=== PATIENT | female | born 1970 | race African-American/Black ===

== ENCOUNTER 2016-10-26 17:20 | Emergency (ER) | payer MEDICARE, MEDICAID ==
[2016-10-26] MEDS ORDERED: Ketorolac Tromethamine 60 MG/2 ML VIAL ONE (17:53)
== END 2016-10-26 18:06 | disposition home or self-care (01) ==
LOC: NAV ERS 17:20
DX: M77.11 Lateral epicondylitis, right elbow (principal); M77.12 Lateral epicondylitis, left elbow; B20 Human immunodeficiency virus [HIV] disease; I10 Essential (primary) hypertension; J45.909 Unspecified asthma, uncomplicated
CPT/HCPCS: 96372; J1885

== ENCOUNTER 2016-12-18 10:24 | Emergency (ER) | payer MEDICARE, OTHER ==
[2016-12-18] MEDS ORDERED: Tetracaine HCl 0.5% Ophth Soln 2 ML Bottle ONE (10:46)
[2016-12-18] MEDS ORDERED: Gentamicin Ophth Ointment 0.3% 3.5 gm Tube ONE (11:13)
== END 2016-12-18 11:27 | disposition home or self-care (01) ==
LOC: NAV ERS 10:24
DX: H00.012 Hordeolum externum right lower eyelid (principal); I10 Essential (primary) hypertension; J45.909 Unspecified asthma, uncomplicated; Z21 Asymptomatic human immunodeficiency virus [HIV] infection status; Z86.73 Personal history of transient ischemic attack (TIA), and cerebral infarction without residual deficits; Z79.899 Other long term (current) drug therapy
CPT/HCPCS: 99283

== ENCOUNTER 2017-02-16 23:09 | Emergency (ER) | payer MEDICARE, OTHER ==
[2017-02-16] MEDS ORDERED: Adacel (T-DAP) 0.5 ML VIAL ONE (23:36)
[2017-02-16] MEDS ORDERED: traMADol HCl 50 MG TAB ONE (23:36)
--- NOTE | 2017-02-16 23:56 | RAD ---
RIGHT TOE RADIOGRAPHS THREE VIEWS 02/16/2017 PROVIDED CLINICAL HISTORY: Right toe pain status post injury. FINDINGS: No evidence for fracture or other acute osseous abnormality. If there is persistent clinical concern, conservative management and follow-up imaging are advised. IMPRESSION: As above. POS: [facility]
== END 2017-02-17 00:05 | disposition home or self-care (01) ==
LOC: NAV ERS 23:09
DX: S90.121A Contusion of right lesser toe(s) without damage to nail, initial encounter (principal); B20 Human immunodeficiency virus [HIV] disease; J45.909 Unspecified asthma, uncomplicated; E66.9 Obesity, unspecified; I10 Essential (primary) hypertension; W22.8XXA Striking against or struck by other objects, initial encounter
CPT/HCPCS: 90471; 90715

== ENCOUNTER 2017-04-08 20:04 | Emergency (ER) | payer MEDICARE, OTHER ==
[2017-04-08] MEDS ORDERED: Lidocaine 1% 20 ML MDV ONE (20:41)
--- NOTE | 2017-04-08 21:03 | RAD ---
RIGHT FOOT THREE VIEWS: History: Kicked son's boot. Comparison: 02-16-17 FINDINGS: There is a fracture of the proximal phalanx fourth toe with lateral angulation and mild comminution. There does appear to be a fracture line seen to the metacarpal phalangeal joint. IMPRESSION: Mildly comminuted fracture of the proximal phalanx fourth digit with an intraarticular extension to the metacarpal phalangeal joint. POS: [facility]
--- NOTE | 2017-04-08 21:17 | RAD ---
RIGHT FOOT TWO VIEWS: History: Post reduction. Comparison: Foot radiographs same day. FINDINGS: Satisfactory alignment and post reduction of the proximal phalanx fracture fourth digit. IMPRESSION: Satisfactory alignment post reduction. POS: [facility]
== END 2017-04-08 21:23 | disposition home or self-care (01) ==
LOC: NAV ERS 20:04
DX: S92.511A Displaced fracture of proximal phalanx of right lesser toe(s), initial encounter for closed fracture (principal); I10 Essential (primary) hypertension; J45.909 Unspecified asthma, uncomplicated; Z21 Asymptomatic human immunodeficiency virus [HIV] infection status; Z86.73 Personal history of transient ischemic attack (TIA), and cerebral infarction without residual deficits; W22.8XXA Striking against or struck by other objects, initial encounter
CPT/HCPCS: 28515; J2001

== ENCOUNTER 2017-06-20 12:11 | Emergency (ER) | payer MEDICARE, OTHER ==
[2017-06-20] MEDS ORDERED: Dexamethasone 4 mg/ml Vial ONE (13:16)
== END 2017-06-20 13:41 | disposition home or self-care (01) ==
LOC: NAV ERS 12:11
DX: L23.6 Allergic contact dermatitis due to food in contact with the skin (principal); B20 Human immunodeficiency virus [HIV] disease; I10 Essential (primary) hypertension; J45.909 Unspecified asthma, uncomplicated
CPT/HCPCS: 96372; J1100

== ENCOUNTER 2017-10-31 17:32 | Emergency (ER) | payer MEDICARE, OTHER ==
[2017-10-31] MEDS ORDERED: diphenhydrAMINE 50 MG/ML VIAL ONE (17:52)
[2017-10-31] MEDS ORDERED: predniSONE 20 MG TAB ONE (17:53)
== END 2017-10-31 18:47 | disposition home or self-care (01) ==
LOC: NAV ERS 17:32
DX: T78.40XA Allergy, unspecified, initial encounter (principal); I10 Essential (primary) hypertension; Z86.73 Personal history of transient ischemic attack (TIA), and cerebral infarction without residual deficits; B20 Human immunodeficiency virus [HIV] disease; J45.909 Unspecified asthma, uncomplicated; Z79.899 Other long term (current) drug therapy
CPT/HCPCS: 96372; J1200; J7506

== ENCOUNTER 2018-01-15 17:23 | Emergency (ER) | payer MEDICARE, OTHER ==
[2018-01-15] MEDS ORDERED: Mag-Al Plus 1200 MG/1200 MG/120 MG/30 ML UDCUP ONE (17:50)
[2018-01-15] MEDS ORDERED: Lidocaine Viscous Sol 2% 15 ml UD Cup ONE (17:50)
[2018-01-15 18:24] LABS: #Eosinphils 0.1 thou/uL (0.0-0.7); #Lymphocytes 2.2 thou/uL (1.20-3.40); #Monocytes 0.3 thou/uL (0.11-0.59); #Neutrophils 2.4 thou/uL (1.40-6.50); %Basophils 0.7 % (0.0-1.0); %Eosinophils 2.8 % (0.0-10.0); %Lymphocytes 44.7 % (21.0-51.0); %Neutrophils 46.9 % (42.0-75.0); Hemoglobin 12.2 g/dL (12.0-16.0); Mean Corpuscular HGB CONC 31.8 g/dL (32.0-36.0); Mean Corpuscular Hemoglobin 31.6 pg (27.0-31.0); Mean Corpuscular Volume 99.2 fl (81.0-99.0); Mean Platelet Volume 5.8 fL (7.4-10.4); Platelet Count 325 thou/uL (130-400); RBC Distribution Width 11.2 % (11.5-14.5); Red Blood Cell (RBC) Count 3.87 mill/uL (4.20-5.40)
--- NOTE | 2018-01-15 18:43 | RAD ---
CHEST ONE VIEW: 01/15/18 COMPARISON: 05/08/16. HISTORY: Pain. FINDINGS: Diminished lung volumes, likely due to poor inspiratory effort. No consolidation. No pleural effusion or pneumothorax. Normal cardiac silhouette. IMPRESSION: No acute cardiopulmonary process. POS: [facility]
[2018-01-15 18:48] LABS: ALT (SGPT) 19 U/L (8-55); AST (SGOT) 22 U/L (5-34); Albumin 3.5 g/dL (3.5-5.0); Alkaline Phosphatase 124 U/L (40-150); Anion Gap 12 mmol/L (10-20); BUN (Urea Nitrogen) 22 mg/dL (7.0-18.7); Bilirubin, Total 0.5 mg/dL (0.2-1.2); CK (CPK) 166 U/L (29-168); CKMB 1.3 ng/mL (0-6.6); Calc. Creatinine Clearance 0 mL/min (70-130); Calcium 8.9 mg/dL (7.8-10.44); Carbon Dioxide 25 mmol/L (22-29); Chloride 106 mmol/L (98-107); Estimated GFR-MDRD 47; Globulin 3.5 g/dL (2.4-3.5); Glucose 95 mg/dL (70-105); Lipase 40 U/L (8-78); Potassium 3.9 mmol/L (3.5-5.1); Sodium 139 mmol/L (136-145); Troponin I Less than 0.010 ng/mL (< 0.028)
== END 2018-01-15 19:20 | disposition home or self-care (01) ==
LOC: NAV ERS 17:23
DX: R07.2 Precordial pain (principal); E86.0 Dehydration; B20 Human immunodeficiency virus [HIV] disease; Z86.73 Personal history of transient ischemic attack (TIA), and cerebral infarction without residual deficits; J45.909 Unspecified asthma, uncomplicated; Z79.899 Other long term (current) drug therapy; Z79.82 Long term (current) use of aspirin
CPT/HCPCS: 71045; 80053; 82550; 82553; 83690; 83880; 84484; 85025; 93005

== ENCOUNTER 2018-04-20 19:56 | Emergency (ER) | payer MEDICARE, OTHER ==
[2018-04-20] MEDS ORDERED: predniSONE 20 MG TAB ONE (20:29)
[2018-04-20] MEDS ORDERED: predniSONE 10 MG TAB ONE (20:29)
[2018-04-20] MEDS ORDERED: Benzonatate 100 MG CAP ONE (20:34)
== END 2018-04-20 21:12 | disposition home or self-care (01) ==
LOC: NAV ERS 19:56
DX: J45.901 Unspecified asthma with (acute) exacerbation (principal); J06.9 Acute upper respiratory infection, unspecified; B20 Human immunodeficiency virus [HIV] disease; I10 Essential (primary) hypertension; Z86.73 Personal history of transient ischemic attack (TIA), and cerebral infarction without residual deficits; Z79.899 Other long term (current) drug therapy; Z79.82 Long term (current) use of aspirin
CPT/HCPCS: J7506; J7512; J7620

== ENCOUNTER 2018-06-16 13:47 | Emergency (ER) | payer MEDICARE, OTHER ==
[2018-06-16] MEDS ORDERED: Mag-Al Plus 1200 MG/1200 MG/120 MG/30 ML UDCUP ONE (14:45)
[2018-06-16] MEDS ORDERED: Lidocaine Viscous Sol 2% 15 ml UD Cup ONE (14:45)
== END 2018-06-16 15:10 | disposition home or self-care (01) ==
LOC: NAV ERS 13:47
DX: K29.00 Acute gastritis without bleeding (principal); B20 Human immunodeficiency virus [HIV] disease; J45.909 Unspecified asthma, uncomplicated; I10 Essential (primary) hypertension; Z86.73 Personal history of transient ischemic attack (TIA), and cerebral infarction without residual deficits; Z79.899 Other long term (current) drug therapy; Z79.82 Long term (current) use of aspirin; Z86.711 Personal history of pulmonary embolism
CPT/HCPCS: 99283

== ENCOUNTER 2018-07-26 09:26 | Emergency (ER) | payer MEDICARE, MEDICAID | END 2018-07-26 10:11 | disposition home or self-care (01) | LOC: NAV ERS 09:26 | DX: N93.9 Abnormal uterine and vaginal bleeding, unspecified (principal); B20 Human immunodeficiency virus [HIV] disease; I10 Essential (primary) hypertension; J45.909 Unspecified asthma, uncomplicated; Z86.73 Personal history of transient ischemic attack (TIA), and cerebral infarction without residual deficits; Z79.82 Long term (current) use of aspirin; Z79.899 Other long term (current) drug therapy | CPT/HCPCS: 99281 ==

== ENCOUNTER 2018-09-16 17:42 | Emergency (ER) | payer MEDICARE, OTHER | END 2018-09-16 18:50 | disposition home or self-care (01) | LOC: NAV ERS 17:42 | DX: M79.674 Pain in right toe(s) (principal); B20 Human immunodeficiency virus [HIV] disease; J45.909 Unspecified asthma, uncomplicated; Z86.73 Personal history of transient ischemic attack (TIA), and cerebral infarction without residual deficits; Z79.899 Other long term (current) drug therapy; Z79.82 Long term (current) use of aspirin | CPT/HCPCS: 99281 ==

== ENCOUNTER 2018-12-21 23:50 | Emergency (ER) | payer MEDICARE, OTHER ==
[2018-12-22] MEDS ORDERED: Ondansetron ODT 4 MG TAB ONE (00:06)
[2018-12-22] MEDS ORDERED: Mag-Al Plus 1200 MG/1200 MG/120 MG/30 ML UDCUP ONE (00:21)
[2018-12-22] MEDS ORDERED: Lidocaine Viscous Sol 2% 15 ml UD Cup ONE (00:21)
[2018-12-22 00:49] LABS: #Basophils 0.1 thou/uL (0.0-0.2); #Eosinphils 0.3 thou/uL (0.0-0.7); #Lymphocytes 1.7 thou/uL (1.20-3.40); #Monocytes 0.2 thou/uL (0.11-0.59); %Basophils 1.2 % (0.0-1.0); %Eosinophils 6.2 % (0.0-10.0); %Lymphocytes 40.7 % (21.0-51.0); %Monocytes 5.1 % (0.0-10.0); %Neutrophils 46.8 % (42.0-75.0); Hemoglobin 12.1 g/dL (12.0-16.0); Mean Corpuscular HGB CONC 31.5 g/dL (32.0-36.0); Mean Corpuscular Hemoglobin 31.9 pg (27.0-31.0); Mean Platelet Volume 5.3 fL (7.4-10.4); Platelet Count 304 thou/uL (130-400); Platelet Morphology Comment Appears Adequate; RBC Distribution Width 11.4 % (11.5-14.5); RBC Morphology Normal; White Blood Cell (WBC) Count 4.3 thou/uL (4.8-10.8)
[2018-12-22 00:50] LABS: MDiff Complete? YES; Manual Diff?? NO
[2018-12-22 00:54] LABS: ALT (SGPT) 16 U/L (8-55); AST (SGOT) 20 U/L (5-34); Albumin 3.4 g/dL (3.5-5.0); Alkaline Phosphatase 121 U/L (40-150); Anion Gap 13 mmol/L (10-20); BUN (Urea Nitrogen) 25 mg/dL (7.0-18.7); Bilirubin, Total 0.3 mg/dL (0.2-1.2); Calc. Creatinine Clearance 0 mL/min (70-130); Calcium 8.9 mg/dL (7.8-10.44); Carbon Dioxide 25 mmol/L (22-29); Chloride 106 mmol/L (98-107); Estimated GFR-MDRD 50; Globulin 3.7 g/dL (2.4-3.5); Glucose 102 mg/dL (70-105); Lipase 58 U/L (8-78); Potassium 4.1 mmol/L (3.5-5.1); Protein, Total 7.1 g/dL (6.0-8.3); Sodium 140 mmol/L (136-145)
== END 2018-12-22 01:12 | disposition home or self-care (01) ==
LOC: NAV ERS 23:50
DX: R10.13 Epigastric pain (principal); B20 Human immunodeficiency virus [HIV] disease; J45.909 Unspecified asthma, uncomplicated; Z86.73 Personal history of transient ischemic attack (TIA), and cerebral infarction without residual deficits; Z79.899 Other long term (current) drug therapy; Z79.82 Long term (current) use of aspirin; Z79.51 Long term (current) use of inhaled steroids
CPT/HCPCS: 36415; 80053; 83690; 84484; 85025; 93005; Q0162

== ENCOUNTER 2019-11-06 11:24 | Emergency (ER) | payer MEDICARE, MEDICAID, OTHER | END 2019-11-06 12:56 | disposition home or self-care (01) | LOC: NAV ERS 11:24 | DX: J10.1 Influenza due to other identified influenza virus with other respiratory manifestations (principal); I10 Essential (primary) hypertension; J45.909 Unspecified asthma, uncomplicated; Z86.73 Personal history of transient ischemic attack (TIA), and cerebral infarction without residual deficits; Z79.82 Long term (current) use of aspirin; Z79.899 Other long term (current) drug therapy | CPT/HCPCS: 87081; 87430; 87804; 99283 ==

== ENCOUNTER 2020-01-26 21:47 | Emergency (ER) | payer MEDICARE, OTHER ==
[2020-01-26] MEDS ORDERED: traMADol HCl 50 MG TAB ONE (22:05)
== END 2020-01-26 22:12 | disposition home or self-care (01) ==
LOC: NAV ERS 21:47
DX: K02.9 Dental caries, unspecified (principal); B20 Human immunodeficiency virus [HIV] disease; I10 Essential (primary) hypertension; J45.909 Unspecified asthma, uncomplicated; Z86.73 Personal history of transient ischemic attack (TIA), and cerebral infarction without residual deficits; H40.9 Unspecified glaucoma; Z79.82 Long term (current) use of aspirin; Z79.899 Other long term (current) drug therapy; Z79.51 Long term (current) use of inhaled steroids
CPT/HCPCS: 99282

== ENCOUNTER 2020-10-28 12:04 | Emergency (ER) | payer MEDICARE, OTHER | END 2020-10-28 12:45 | disposition home or self-care (01) | LOC: NAV ERS 12:04 | DX: M25.412 Effusion, left shoulder (principal); I10 Essential (primary) hypertension; J45.909 Unspecified asthma, uncomplicated; Z86.73 Personal history of transient ischemic attack (TIA), and cerebral infarction without residual deficits; Z79.82 Long term (current) use of aspirin; Z79.899 Other long term (current) drug therapy | CPT/HCPCS: 99283 ==

== ENCOUNTER 2021-02-28 18:47 | Emergency (ER) | payer MEDICARE, OTHER | END 2021-02-28 19:17 | disposition home or self-care (01) | LOC: NAV ERS 18:47 | DX: M25.561 Pain in right knee (principal); E78.5 Hyperlipidemia, unspecified; B20 Human immunodeficiency virus [HIV] disease; I10 Essential (primary) hypertension; Z86.73 Personal history of transient ischemic attack (TIA), and cerebral infarction without residual deficits; J45.909 Unspecified asthma, uncomplicated | CPT/HCPCS: 99283 ==

== ENCOUNTER 2021-03-21 13:42 | Outpatient (CLI) | payer MEDICARE, OTHER | END 2021-03-21 13:43 | disposition home or self-care (01) | LOC: NAV RAD 13:42 | PROVIDERS: ATTEND Nurse Practitioner Family | DX: M17.11 Unilateral primary osteoarthritis, right knee (principal) ==

== ENCOUNTER 2021-06-25 17:57 | Emergency (ER) | payer MEDICARE, OTHER ==
[2021-06-25] MEDS ORDERED: Morphine 4 MG/ML VIAL ONE (18:32)
== END 2021-06-25 18:48 | disposition critical access hospital (66) ==
LOC: NAV ERS 17:57
DX: R68.84 Jaw pain (principal); Z79.899 Other long term (current) drug therapy; Z79.82 Long term (current) use of aspirin; E78.5 Hyperlipidemia, unspecified; I10 Essential (primary) hypertension; J45.909 Unspecified asthma, uncomplicated
CPT/HCPCS: 96372; 99283; J2270

== ENCOUNTER 2021-08-13 12:54 | Emergency (ER) | payer MEDICARE | END 2021-08-13 13:44 | disposition home or self-care (01) | LOC: NAV ERS 12:54 | DX: U07.1 COVID-19 (principal); E78.5 Hyperlipidemia, unspecified; I10 Essential (primary) hypertension; J45.909 Unspecified asthma, uncomplicated; Z86.73 Personal history of transient ischemic attack (TIA), and cerebral infarction without residual deficits; Z79.82 Long term (current) use of aspirin; Z79.899 Other long term (current) drug therapy | CPT/HCPCS: 99283 ==

== ENCOUNTER 2022-04-08 21:13 | Emergency (ER) | payer OTHER ==
[2022-04-08] MEDS ORDERED: Nitroglycerin 0.4 MG TAB (25 Tab Bottle) ONE (21:33)
[2022-04-08 21:55] LABS: #Basophils 0.1 thou/uL (0.0-0.2); #Eosinphils 0.3 thou/uL (0.0-0.7); #Lymphocytes 2.3 thou/uL (1.20-3.40); #Monocytes 0.3 thou/uL (0.11-0.59); #Neutrophils 2.4 thou/uL (1.40-6.50); %Basophils 1.2 % (0.0-1.0); %Eosinophils 5.3 % (0.0-10.0); %Lymphocytes 43.8 % (21.0-51.0); %Monocytes 5.4 % (0.0-10.0); %Neutrophils 44.3 % (42.0-75.0); Hemoglobin 12.5 g/dL (12.0-16.0); MDiff Complete? YES; Macrocytosis SLIGHT = 6-15 cells (100X) (0-5/hpf); Mean Corpuscular HGB CONC 31.7 g/dL (32.0-36.0); Mean Corpuscular Hemoglobin 33.4 pg (27.0-31.0); Mean Platelet Volume 5.4 fL (7.4-10.4); Platelet Count 311 thou/uL (130-400); RBC Distribution Width 12.1 % (11.5-14.5); Red Blood Cell (RBC) Count 3.74 mill/uL (4.20-5.40); White Blood Cell (WBC) Count 5.3 thou/uL (4.8-10.8)
[2022-04-08 21:58] LABS: ALT (SGPT) 18 U/L (8-55); AST (SGOT) 15 U/L (5-34); Albumin 3.4 g/dL (3.5-5.0); Alkaline Phosphatase 126 U/L (40-110); Anion Gap 16 mmol/L (10-20); BUN (Urea Nitrogen) 18 mg/dL (9.8-20.1); Bilirubin, Total 0.4 mg/dL (0.2-1.2); Calc. Creatinine Clearance 0 mL/min (70-130); Calcium 8.9 mg/dL (7.8-10.44); Carbon Dioxide 19 mmol/L (22-29); Chloride 109 mmol/L (98-107); Estimated GFR 50; Globulin 3.9 g/dL (2.4-3.5); Glucose 89 mg/dL (70-105); Potassium 3.9 mmol/L (3.5-5.1); Protein, Total 7.3 g/dL (6.0-8.3); Sodium 140 mmol/L (136-145)
[2022-04-08] MEDS ORDERED: Acetaminophen 500 MG TAB ONE (22:08)
== END 2022-04-09 01:15 | disposition home or self-care (01) ==
LOC: NAV ERS 21:13
DX: M94.0 Chondrocostal junction syndrome [Tietze] (principal); E78.5 Hyperlipidemia, unspecified; I10 Essential (primary) hypertension; Z79.899 Other long term (current) drug therapy
CPT/HCPCS: 36415; 71045; 80053; 84484; 85025; 85379; 93005; 94760

== ENCOUNTER 2022-05-07 19:34 | Emergency (ER) | payer OTHER ==
[2022-05-07] MEDS ORDERED: predniSONE 20 MG TAB ONE (20:19)
[2022-05-07] MEDS ORDERED: Loratadine 10 MG TAB ONE (20:19)
== END 2022-05-07 20:25 | disposition home or self-care (01) ==
LOC: NAV ERS 19:34
DX: J30.1 Allergic rhinitis due to pollen (principal); E78.5 Hyperlipidemia, unspecified; I10 Essential (primary) hypertension; B20 Human immunodeficiency virus [HIV] disease; Z79.899 Other long term (current) drug therapy; Z79.82 Long term (current) use of aspirin
CPT/HCPCS: 99283; J7512

== ENCOUNTER 2022-06-08 14:04 | Emergency (ER) | payer OTHER, MEDICAID | END 2022-06-08 14:45 | disposition home or self-care (01) | LOC: NAV ERS 14:04 | DX: B30.9 Viral conjunctivitis, unspecified (principal); E78.5 Hyperlipidemia, unspecified; I10 Essential (primary) hypertension | CPT/HCPCS: 99283 ==

== ENCOUNTER 2023-05-21 18:17 | Emergency (ER) | payer OTHER | END 2023-05-21 19:18 | disposition home or self-care (01) | LOC: NAV ERS 18:17 | DX: J30.9 Allergic rhinitis, unspecified (principal); I10 Essential (primary) hypertension | CPT/HCPCS: 99282 ==

== ENCOUNTER 2024-05-15 19:37 | Emergency (ER) | payer MEDICARE, OTHER ==
[2024-05-15] MEDS ORDERED: predniSONE 20 MG TAB ONE (19:56)
== END 2024-05-15 19:59 | disposition home or self-care (01) ==
LOC: NAV ERS 19:37
DX: J30.9 Allergic rhinitis, unspecified (principal); I10 Essential (primary) hypertension; Z86.73 Personal history of transient ischemic attack (TIA), and cerebral infarction without residual deficits
CPT/HCPCS: 99283; J7512

== ENCOUNTER 2024-07-07 01:50 | Emergency (ER) | payer MEDICARE, OTHER ==
[2024-07-07] MEDS ORDERED: Acetaminophen 500 MG TAB ONE (02:44)
[2024-07-07] MEDS ORDERED: Lidocaine Viscous Sol 2% 15 ml UD Cup ONE (02:45)
[2024-07-07] MEDS ORDERED: Loperamide HCl 2 MG CAP ONE (02:45)
[2024-07-07] MEDS ORDERED: Benzonatate 100 MG CAP ONE (02:45)
== END 2024-07-07 02:55 | disposition home or self-care (01) ==
LOC: NAV ERS 01:50
DX: J06.9 Acute upper respiratory infection, unspecified (principal); R19.7 Diarrhea, unspecified; I10 Essential (primary) hypertension
CPT/HCPCS: 99283